=== PATIENT | female | born 1990 | race Caucasian/White ===

== ENCOUNTER 2023-02-18 18:05 | Emergency (ER) | payer BC, SELFPAY ==
[2023-02-18 18:09] VITALS: BP 104/73; PULSE 90; RESP 18; TEMP 37.2; O2SAT 96
[2023-02-18 19:11] LABS: Bilirubin Negative (Negative); Blood Moderate (Negative); Clarity Clear (Clear); Glucose Negative (Negative); Ketones 15 mg/dL (Negative); Leukocyte Esterase Negative (Negative); Nitrite Negative (Negative); Specific Gravity 1.025 (1.005-1.025); Urobilinogen 0.2 mg/dL (Up to 0.2)
[2023-02-18 19:18] LABS: RBC >50 HPF (0-2)
[2023-02-18 19:19] LABS: C & S Indicated? No
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
== END 2023-02-18 22:47 | disposition home or self-care (01) ==
PROVIDERS: Emergency Provider Physician Assistant
DX: S31.41XA Laceration without foreign body of vagina and vulva, initial encounter; W22.8XXA Striking against or struck by other objects, initial encounter; Y93.55 Activity, bike riding
CPT/HCPCS: 81025; 99283; 81003; 81015